=== PATIENT | male | born 1935 | race Caucasian/White ===

== ENCOUNTER 2018-08-12 09:16 | Inpatient (IN) | payer MEDICARE, OTHER ==
[~2018-08-12] VITALS: Ht 175.3 cm; Wt 73.0 kg
[2018-08-12 09:54] LABS: BASO % 0.4 % (0.0-2.0); EOS # 0.1 (0.0-0.7); EOS % 2.2 % (0-4.0); GRAN # 4.1 (1.4-6.5); GRAN % 74.7 % (42.2-75.2); HEMOGLOBIN 12.2 g/dl (13.5-18.0); LYMPH # 0.8 (1.2-3.4); LYMPH % 14.6 % (20.0-51.0); MEAN CELL VOLUME 92 fl (80.0-100.0); MEAN CORPUSCULAR HEMOGLOBIN 31 pg (27.0-31.0); MEAN CORPUSCULAR HGB CONC 34 g/dl (33.0-37.0); MEAN PLATELET VOLUME 8.3 fl (7.4-10.4); MONO # 0.4 (0.1-0.6); MONO % 7.7 % (1.7-9.3); PLATELET COUNT 222 K/mm3 (130-400); RED BLOOD COUNT 3.91 M/mm3 (4.20-5.60); REDCELL DISTRIBUTION WIDTH-CV 12.5 % (11.5-14.5)
[2018-08-12 09:57] LABS: INR 2.1 (0.8-3.0); PROTHROMBIN TIME 24.3 SECONDS (9.7-12.8)
[2018-08-12 10:00] LABS: HEMATOCRIT 35.9 % (42.0-52.0)
[2018-08-12 10:02] LABS: ALBUMIN 4.3 gm/dL (3.5-5.0); BILIRUBIN,TOTAL 0.6 mg/dL (0.0-1.0); CALCIUM 9.5 mg/dL (8.4-10.2); CREATININE, serum 1.22 mg/dL (0.66-1.25); POTASSIUM 4.3 mmol/L (3.4-5.0); TOTAL PROTEIN 7.6 gm/dL (6.4-8.2)
[2018-08-12] MEDS ORDERED: NORVASC 5MG5 MG/TAB PO (10:13)
[2018-08-12] MEDS ORDERED: LASIX 40MG TABL40 MG PO (10:13)
[2018-08-12] MEDS ORDERED: FISH OIL 1000MG1 CAP PO (10:13)
[2018-08-12] MEDS ORDERED: TENORMIN100 MG PO (10:13)
[2018-08-12] MEDS ORDERED: MULTI VITAMINS1 TAB PO (10:14)
[2018-08-12] MEDS ORDERED: PRINIVIL40 MG PO (10:14)
[2018-08-12] MEDS ORDERED: ZESTRIL 20MG TA20 MG PO (10:14)
[2018-08-12] MEDS ORDERED: ZOCOR 20MG20 MG PO (10:15)
[2018-08-12] MEDS ORDERED: SELENOMAX200 MC1 PO (10:15)
[2018-08-12] MEDS ORDERED: COUMADIN 5MG5 MG/TAB PO (10:15)
[2018-08-12 12:56] VITALS: BP 127/71; PULSE 60; TEMP 98.4
[2018-08-12] MEDS ORDERED: COUMADIN 22.5 MG/TAB PO (13:31)
[2018-08-12 15:08] VITALS: BP 130/75; PULSE 65; TEMP 98.4
[2018-08-12 15:45] LABS: HEMOGLOBIN 12.3 g/dl (13.5-18.0)
[2018-08-12 15:47] LABS: HEMATOCRIT 35.9 % (42.0-52.0)
[2018-08-12 16:50] VITALS: BP 130/75; PULSE 65; TEMP 98.4
[2018-08-12 19:11] VITALS: BP 123/73; PULSE 55; TEMP 97.3
[2018-08-12 20:30] VITALS: BP 120/66; PULSE 50; TEMP 97.4
[2018-08-12 23:08] VITALS: BP 117/65; PULSE 61; TEMP 98.2
[2018-08-13] VITALS (7 sets, daily range): BP systolic 107–129; BP diastolic 56–63; PULSE 61–72; TEMP 96.7–98.2
[2018-08-13] MEDS ORDERED: ANUSOL-HC SUPPO25 MG RC ×3 (13:19→13:24)
== END 2018-08-13 13:50 | disposition home or self-care (01) | DRG 379 ==
LOC: COL.ER 09:16 → SURG 11:55
PROVIDERS: Emergency Medicine; Internal Medicine; Surgery
PROC: 0DJD8ZZ Inspection of Lower Intestinal Tract, Via Natural or Artificial Opening Endoscopic (ICD-10-PCS; principal; 2018-08-13 09:00)
PROC: 0DJ08ZZ Inspection of Upper Intestinal Tract, Via Natural or Artificial Opening Endoscopic (ICD-10-PCS; 2018-08-13 09:00)
DX: K57.33 Diverticulitis of large intestine without perforation or abscess with bleeding (principal); K62.7 Radiation proctitis; K22.70 Barrett's esophagus without dysplasia; D13.1 Benign neoplasm of stomach; I10 Essential (primary) hypertension; Z86.711 Personal history of pulmonary embolism; Z79.01 Long term (current) use of anticoagulants; Z86.718 Personal history of other venous thrombosis and embolism; F17.210 Nicotine dependence, cigarettes, uncomplicated
CPT/HCPCS: OP; 99222-AI; 99239; C9113; J0461; J2704; J7030; Q9967

== ENCOUNTER 2018-11-30 14:34 | Emergency (ER) | payer MEDICARE, OTHER ==
[~2018-11-30] VITALS: Ht 177.8 cm; Wt 70.5 kg
[~2018-11-30 14:34] MED LIST: ANUSOL-HC SUPPO25 MG RC; COUMADIN 22.5 MG/TAB PO; COUMADIN 5MG5 MG/TAB PO; FISH OIL 1000MG1 CAP PO; LASIX 40MG TABL40 MG PO; MULTI VITAMINS1 TAB PO; NORVASC 5MG5 MG/TAB PO; PRINIVIL40 MG PO; SELENOMAX200 MC1 PO; TENORMIN100 MG PO; ZESTRIL 20MG TA20 MG PO; ZOCOR 20MG20 MG PO
[2018-11-30 14:39] VITALS: BP 191/91; TEMP 97.8
[2018-11-30 15:28] LABS: COLLECTION METHOD CATHETER
[2018-11-30 15:44] LABS: PH 7 (5-8); SQUAMOUS EPITHELIAL None Seen /hpf; URINE APPEARANCE Hazy; URINE BACTERIA None Seen /hpf; URINE BILIRUBIN Negative (NEGATIVE); URINE BLOOD 3+ (NEGATIVE); URINE COLOR Red; URINE GLUCOSE Negative (NEGATIVE); URINE KETONE Negative (NEGATIVE); URINE LEUKOCYTE ESTERASE Negative (NEGATIVE); URINE NITRATE Negative (NEGATIVE); URINE PROTEIN(semi-quant) 2+ (NEGATIVE); URINE RBC >50 /hpf; URINE UROBILINOGEN Negative (NEGATIVE)
[2018-11-30 16:24] LABS: BASO % 0.2 % (0.0-2.0); EOS % 0.3 % (0-4.0); GRAN # 5.6 (1.4-6.5); GRAN % 86.3 % (42.2-75.2); HEMATOCRIT 37.4 % (42.0-52.0); HEMOGLOBIN 12.8 g/dl (13.5-18.0); LYMPH # 0.5 (1.2-3.4); LYMPH % 7.7 % (20.0-51.0); MEAN CELL VOLUME 91 fl (80.0-100.0); MEAN CORPUSCULAR HEMOGLOBIN 31 pg (27.0-31.0); MEAN CORPUSCULAR HGB CONC 34 g/dl (33.0-37.0); MEAN PLATELET VOLUME 8.8 fl (7.4-10.4); MONO # 0.3 (0.1-0.6); PLATELET COUNT 171 K/mm3 (130-400); RED BLOOD COUNT 4.13 M/mm3 (4.20-5.60); REDCELL DISTRIBUTION WIDTH-CV 13.1 % (11.5-14.5)
[2018-11-30 16:26] LABS: INR 1.4 (0.8-3.0); PROTHROMBIN TIME 16.1 SECONDS (9.7-12.8)
[2018-11-30 16:33] LABS: ALANINE AMINOTRANSFERASE 15 U/L (21-72); ALBUMIN 4.4 gm/dL (3.5-5.0); ALKALINE PHOSPHATASE 79 U/L (50-136); ANION GAP 12 mmol/L (7-16); AST,SGOT 25 U/L (15-37); BILIRUBIN,TOTAL 0.6 mg/dL (0.0-1.0); BLOOD UREA NITROGEN 16 mg/dL (9-20); C-REACTIVE PROTEIN < 0.5 mg/dL (0.0-0.9); CALCIUM 9.7 mg/dL (8.4-10.2); CARBON DIOXIDE 25 mmol/L (22-30); CHLORIDE 96 mmol/L (98-107); CREATININE, serum 1.22 (0.66-1.25); GLUCOSE 116 mg/dL (74-106); POTASSIUM 4.1 mmol/L (3.4-5.0); SODIUM 133 mmol/L (137-145); TOTAL PROTEIN 7.8 gm/dL (6.4-8.2)
[2018-11-30] MEDS ORDERED: MACROBID 1100 MG/CAP PO (18:24)
[2018-11-30 19:01] VITALS: PULSE 65
== END 2018-11-30 19:04 | disposition home or self-care (01) ==
LOC: COL.ER 14:34
PROVIDERS: Emergency Medicine
DX: R33.9 Retention of urine, unspecified (principal); R31.0 Gross hematuria; I10 Essential (primary) hypertension; E78.00 Pure hypercholesterolemia, unspecified; Z86.718 Personal history of other venous thrombosis and embolism; Z86.711 Personal history of pulmonary embolism; Z79.01 Long term (current) use of anticoagulants

== ENCOUNTER 2018-12-14 07:29 | Day surgery (SDC) | payer MEDICARE, OTHER ==
[~2018-12-14] VITALS: Ht 175.3 cm; Wt 77.7 kg
[~2018-12-14 07:29] MED LIST changes: +MACROBID 1100 MG/CAP PO
[2018-12-14 07:58] VITALS: BP 157/73; PULSE 55; TEMP 98.6
[2018-12-14 12:55] VITALS: BP 121/62; PULSE 54
[2018-12-14 13:55] VITALS: BP 128/64; PULSE 55
[2018-12-14 14:55] VITALS: BP 131/61; PULSE 61; TEMP 98.1
[2018-12-14 16:00] VITALS: BP 134/68; PULSE 62; TEMP 98.1
[2018-12-14] MEDS ORDERED: COUMADIN 5MG5 MG/TAB PO (16:15)
[2018-12-14 20:00] VITALS: BP 105/56; PULSE 94; TEMP 97.9
--- NOTE | 2018-12-14 20:00 | NUR ---
REPORT RECEIVED. ASSUMED CARE FOR WOOD STOCK BLANK HANDLER. ASSESSMENT COMPLETE. VS STABLE. PLAN OF CARE DISCUSSED FOR WOOD STOCK BLANK HANDLER TO INCLUDE HS MEDICATIONS AND CBI. CBI CURRENTLY CLAMPED-CLEAR YELLOW URINE DRAINING WITHOUT DIFFICULTY. DENIES PAIN/N/V. ENCOURAGED TO CALL FOR QUESTIONS OR CONCERNS. VERBALIZES UNDERSTANDING. CALL LIGHT WITHIN REACH, BED IN LOW POSITION, WHEELS LOCKED.
--- NOTE | 2018-12-14 22:00 | NUR ---
THIS NURSE TO ROOM DUE TO CALL ABOUT NOT BEING ABLE TO SLEEP. STATES HE IS EXHAUSTED AND CANT SLEEP. PRN MEDICATION ORDER FOR AMBIEN 5-10 MG. GIVEN AT THIS TIME. WILL MONITOR.
[2018-12-15] VITALS: BP 112/60; PULSE 67; TEMP 98.1
--- NOTE | 2018-12-15 01:00 | NUR ---
RESTING IN BED EYES CLOSED, AUDIBLE SNORING. NO S/S OF PAIN NOTED. MAXWELL WITH CLEAR YELLOW URINE. WILL MONITOR.
[2018-12-15 04:00] VITALS: BP 120/54; PULSE 96; TEMP 97.9
--- NOTE | 2018-12-15 05:30 | NUR ---
RESTED WELL FOR THE REST OF THE SHIFT. DENIES PAIN THIS MORNING. MAXWELL WITH CLEAR YELLOW URINE. CBI HAS BEEN CLAMPED ENTIRE SHIFT. VS HAVE REMAINED STABLE. DENIES ANY QUESTION OR CONCERNS. WILL MONITOR.
--- NOTE | 2018-12-15 08:40 | NUR ---
rounded this am. Patient alert & oriented. Had breakfast & did well. Orders to [facility]. Patient tolerated perkins removal. Voided x1 a few clots were noted. He is anticipating discharge home today. His called to check in.
[2018-12-15 09:24] VITALS: BP 96/54; PULSE 54; TEMP 98.1
--- NOTE | 2018-12-15 10:17 | NUR ---
SW met with patient about DC plan. Plan is to return home with as care support unless otherwise specified by the doctor. Patient reports that he is able to transport himself home. Patient reports that his Eduarda is his emr contact at . Patient denied the use of any DME, patient declined any use of home health. Patient reports PCP as Dr. Ojeda and other PA as Dr. De La Cruz. Patient reports that he obtains his RX from [facility]. Patient indicated that has a hard time with the order for Coumadin warfarin and it being delayed.. No additional needs identified.
--- NOTE | 2018-12-15 10:41 | NUR ---
Patient feeling frustrated with not voiding more. Reassured him it will take time. He is drink water. He has voided for a second time, more pink tinged this time. Will monitor.
--- NOTE | 2018-12-15 12:09 | NUR ---
Valentino spoke to his wofe again on the phone. Continues to drink adequate water, needing to void
[2018-12-15 12:49] VITALS: BP 130/62; PULSE 92; TEMP 97.4
--- NOTE | 2018-12-15 13:59 | NUR ---
Tobyjillina voided 700 more mls. Ready to discharge home. all dsicharge paperwork reviewed. INT dc He verbalized all understanding.
== END 2018-12-15 14:00 | disposition home or self-care (01) ==
LOC: SDCO 07:29 → JCC 11:22 → SDCO 12-15 14:00
DX: R31.9 Hematuria, unspecified (principal); N30.41 Irradiation cystitis with hematuria; M10.9 Gout, unspecified; E78.00 Pure hypercholesterolemia, unspecified; I10 Essential (primary) hypertension; Z85.46 Personal history of malignant neoplasm of prostate; Z90.79 Acquired absence of other genital organ(s); Z92.3 Personal history of irradiation; Z86.711 Personal history of pulmonary embolism; Z88.8 Allergy status to other drugs, medicaments and biological substances; Z82.49 Family history of ischemic heart disease and other diseases of the circulatory system; Z80.1 Family history of malignant neoplasm of trachea, bronchus and lung; D64.9 Anemia, unspecified
CPT/HCPCS: OP; J2405; J2704; J3010; J7030

== ENCOUNTER 2018-12-19 18:34 | Emergency (ER) | payer MEDICARE, OTHER ==
[~2018-12-19] VITALS: Ht 175.3 cm; Wt 77.7 kg
[2018-12-19 18:48] VITALS: BP 178/83; TEMP 97.1
[2018-12-19 20:29] LABS: COLLECTION METHOD IN
[2018-12-19 20:36] LABS: BASO % 0.3 % (0.0-2.0); EOS # 0.1 (0.0-0.7); GRAN # 5.5 (1.4-6.5); GRAN % 83.5 % (42.2-75.2); HEMOGLOBIN 11.3 g/dl (13.5-18.0); LYMPH # 0.4 (1.2-3.4); LYMPH % 6.4 % (20.0-51.0); MEAN CELL VOLUME 89 fl (80.0-100.0); MEAN CORPUSCULAR HEMOGLOBIN 31 pg (27.0-31.0); MEAN CORPUSCULAR HGB CONC 35 g/dl (33.0-37.0); MEAN PLATELET VOLUME 8.1 fl (7.4-10.4); MONO # 0.5 (0.1-0.6); MONO % 7.5 % (1.7-9.3); PLATELET COUNT 248 K/mm3 (130-400); RED BLOOD COUNT 3.66 M/mm3 (4.20-5.60); REDCELL DISTRIBUTION WIDTH-CV 12.5 % (11.5-14.5)
[2018-12-19 20:37] LABS: HEMATOCRIT 32.7 % (42.0-52.0)
[2018-12-19 20:42] LABS: PROTHROMBIN TIME 11.3 SECONDS (9.7-12.8)
[2018-12-19 20:47] LABS: PH 7 (5-8); SQUAMOUS EPITHELIAL None Seen /hpf; URINE APPEARANCE Cloudy; URINE BACTERIA None Seen /hpf; URINE BILIRUBIN Negative (NEGATIVE); URINE BLOOD 3+ (NEGATIVE); URINE COLOR Amber; URINE GLUCOSE Negative (NEGATIVE); URINE KETONE Negative (NEGATIVE); URINE LEUKOCYTE ESTERASE Negative (NEGATIVE); URINE NITRATE Positive (NEGATIVE); URINE PROTEIN(semi-quant) 2+ (NEGATIVE); URINE RBC >50 /hpf; URINE UROBILINOGEN >=4.0 mg/dL (NEGATIVE)
[2018-12-19 20:49] LABS: ALBUMIN 3.9 gm/dL (3.5-5.0); BILIRUBIN,TOTAL 0.6 mg/dL (0.0-1.0); CALCIUM 8.9 mg/dL (8.4-10.2); CREATININE, serum 1.2 (0.66-1.25); POTASSIUM 4.1 mmol/L (3.4-5.0)
[2018-12-19] MEDS ORDERED: MACROBID 1100 MG/CAP PO (20:51)
[2018-12-19 21:21] VITALS: PULSE 80
[2018-12-19] MEDS ORDERED: PYRIDIUM 100MG100 MG PO (21:25)
== END 2018-12-19 21:26 | disposition home or self-care (01) ==
LOC: COL.ER 18:34
PROVIDERS: Emergency Medicine
DX: R33.9 Retention of urine, unspecified (principal)

== ENCOUNTER 2019-09-07 16:37 | Inpatient (IN) | payer MEDICARE, OTHER ==
[~2019-09-07] VITALS: Wt 77.4 kg
[~2019-09-07 16:37] MED LIST changes: +PYRIDIUM 100MG100 MG PO
[2019-09-07 17:12] LABS: COLLECTION METHOD CLEAN CATCH
[2019-09-07 17:19] LABS: PH 5 (5-8); SQUAMOUS EPITHELIAL 0-2 /hpf; URINE APPEARANCE Clear; URINE BACTERIA None Seen /hpf; URINE BILIRUBIN Negative (NEGATIVE); URINE BLOOD 2+ (NEGATIVE); URINE COLOR Yellow; URINE GLUCOSE Negative (NEGATIVE); URINE KETONE Negative (NEGATIVE); URINE LEUKOCYTE ESTERASE Negative (NEGATIVE); URINE NITRATE Negative (NEGATIVE); URINE PROTEIN(semi-quant) 2+ (NEGATIVE); URINE UROBILINOGEN Negative (NEGATIVE)
[2019-09-07 17:42] LABS: HEMOGLOBIN 11.8 g/dl (13.5-18.0); MEAN CELL VOLUME 92 fl (80.0-100.0); MEAN CORPUSCULAR HEMOGLOBIN 31 pg (27.0-31.0); MEAN CORPUSCULAR HGB CONC 34 g/dl (33.0-37.0); PLATELET COUNT 173 K/mm3 (130-400); RED BLOOD COUNT 3.76 M/mm3 (4.20-5.60); REDCELL DISTRIBUTION WIDTH-CV 12.9 % (11.5-14.5)
[2019-09-07 17:43] LABS: HEMATOCRIT 34.6 % (42.0-52.0)
[2019-09-07 17:44] LABS: INR 1.6 (0.8-3.0); PROTHROMBIN TIME 18.9 SECONDS (9.7-12.8)
[2019-09-07 17:58] LABS: BILIRUBIN,TOTAL 0.9 mg/dL (0.0-1.0); CALCIUM 9.3 mg/dL (8.4-10.2); CREATININE, serum 1.47 (0.66-1.25); POTASSIUM 4.3 mmol/L (3.4-5.0); TOTAL PROTEIN 7.4 gm/dL (6.4-8.2)
[2019-09-07 18:07] LABS: TROPONIN-I 0.031 ng/mL (0.000-0.035)
[2019-09-07 18:16] LABS: C-REACTIVE PROTEIN 26.4 mg/dL (0.0-0.9)
[2019-09-07 18:46] LABS: BAND 8 % (0-10); LYMPHOCYTE 2 % (20.0-51.0); NEUTROPHILS 88 % (42.0-75.2); TOXIC GRANULATION PRESENT
[2019-09-07] MEDS ORDERED: ELIQUIS 2.5 PO (19:09)
[2019-09-07] MEDS ORDERED: BENEMID500 MG PO (19:11)
[2019-09-07] MEDS ORDERED: ACIDOPHILIS (19:13)
[2019-09-07 21:36] VITALS: BP 140/61; PULSE 69; TEMP 99
--- NOTE | 2019-09-07 21:59 | NUR ---
Pt. arrived to the floor via stretcher. Pt. assisted to bed with 2 assist slide transfer. Pt. is A&OX3, assessment complete. IV to lt. ac patent, IV fluids infusing per orders. Pt. reports pain at a 3 on pain scale at this time. Denies need for pain meds. Pt. also stood at bedside with 1 assist to urinate. Pt. then repositioned in the bed for comfort. Pt. denies further needs, call light within reach.
[2019-09-07] MEDS ORDERED: PRINIVIL40 MG PO (22:32)
[2019-09-08] VITALS (7 sets, daily range): BP systolic 102–138; BP diastolic 48–73; PULSE 56–110; TEMP 97.4–100.6
[2019-09-08 00:36] LABS: CALCIUM 8.6 mg/dL (8.4-10.2); CREATININE, serum 1.19 (0.66-1.25); POTASSIUM 3.7 mmol/L (3.4-5.0)
[2019-09-08 07:07] LABS: BASO % 0.1 % (0.0-2.0); GRAN # 10.7 (1.4-6.5); GRAN % 90.1 % (42.2-75.2); HEMOGLOBIN 10.3 g/dl (13.5-18.0); LYMPH # 0.2 (1.2-3.4); LYMPH % 1.8 % (20.0-51.0); MEAN CELL VOLUME 92 fl (80.0-100.0); MEAN CORPUSCULAR HEMOGLOBIN 32 pg (27.0-31.0); MEAN CORPUSCULAR HGB CONC 34 g/dl (33.0-37.0); MEAN PLATELET VOLUME 9.8 fl (7.4-10.4); MONO # 0.7 (0.1-0.6); MONO % 6.2 % (1.7-9.3); PLATELET COUNT 146 K/mm3 (130-400); RED BLOOD COUNT 3.24 M/mm3 (4.20-5.60)
[2019-09-08 07:15] LABS: CALCIUM 8.5 mg/dL (8.4-10.2); CREATININE, serum 1.31 (0.66-1.25); POTASSIUM 3.7 mmol/L (3.4-5.0)
--- NOTE | 2019-09-08 07:17 | NUR ---
Vancomycin Initial Dosing Pharmacy Note Ordering provider: RITO JAMES/Zay Sam MD Indication/duration: EMPIRIC LABS: WBC 13.2, SCr 1.2, CrCl 32 Loading dose: VANC 1 G IN ED Maintenance dose: 1.25 grams every 24 hours Trough goal: 15-20 ug/mL
[2019-09-08 07:31] LABS: TROPONIN-I 0.053 ng/mL (0.000-0.035)
[2019-09-08 08:00] LABS: HEMATOCRIT 29.9 % (42.0-52.0)
--- NOTE | 2019-09-08 13:40 | NUR ---
Alert. Complained of neck pain and pain between shoulder blades when moving. Tylenol given in AM. Afebrile. MRI and echo done. Dr. Sam talked to patient and spouse about need for transfer. Report given to nurse at [facility]. Dismissed per EMS to [facility].
== END 2019-09-08 13:40 | disposition short-term general hospital (02) | DRG 94 ==
LOC: COL.ER 16:37 → SURG 19:02
PROVIDERS: Emergency Medicine; Nurse Practitioner Family; ADMIT Family Medicine
DX: G06.1 Intraspinal abscess and granuloma (principal); I21.4 Non-ST elevation (NSTEMI) myocardial infarction; A41.9 Sepsis, unspecified organism; E87.1 Hypo-osmolality and hyponatremia; N17.9 Acute kidney failure, unspecified; G95.29 Other cord compression; I10 Essential (primary) hypertension; E87.8 Other disorders of electrolyte and fluid balance, not elsewhere classified; E78.5 Hyperlipidemia, unspecified; F17.210 Nicotine dependence, cigarettes, uncomplicated; D64.9 Anemia, unspecified; Z66 Do not resuscitate; Z85.46 Personal history of malignant neoplasm of prostate; Z90.79 Acquired absence of other genital organ(s); Z86.711 Personal history of pulmonary embolism; Z88.8 Allergy status to other drugs, medicaments and biological substances; Z79.01 Long term (current) use of anticoagulants
CPT/HCPCS: 99222-AI; 99239; A9585; C9132; J2270; J3370; J7030; J7050; J7512; Q9967